=== PATIENT | female | born 1985 | race African-American/Black ===

== ENCOUNTER 2017-02-21 03:37 | Emergency (ER) | payer BC, OTHER ==
--- NOTE | ~2017-02-21 | CR72 ---
[facility] A Service of [facility] & [facility] RADIOLOGY TEXT RESULTS PATIENT: HERNAN SANCHEZ LOCATION: [facility] : 89 UNIT #: [id number] AGE: [address]: Roc Vallejo MD SEX: F ORDER DR: [id number] [facility] [address] [place], [place] [address] [id number] E MR#: [id number] Acc #: [id number] NAME: HERNAN SANCHEZ : 1985 SEX: F STUDY DATE/TIME: 02/21/2017 02:52 UNIT: [facility] ROOM: STUDY DESCRIPTION: CR Chest Single View Portable Attending Physician: Roc Vallejo M.D. Ordering Physician: Roc Vallejo M.D. Primary Care Physician: Primary Care Physician No MEDICAL IMAGING REPORT This report is preliminary unless electronic signature is present EXAM Portable chest 02/21 at 0254 INDICATIONS Wheezing and shortness of air tonight. FINDINGS AP portable chest is compared with 05/21/2016. Cardiac enlargement is unchanged. There is some minimal infiltrate or atelectasis at the right base. Lungs otherwise are clear. No pneumothorax. IMPRESSION Mild cardiomegaly with mild degree of infiltrate or atelectasis at the right lung base. Dictated by... Stanford Aj Jr., M.D. THIS IS AN ELECTRONICALLY VERIFIED REPORT Stanford Aj Jr., M.D. at 02/24/2017 7:22 AM HENRIETTA/rita TD: 02/21/2017 07:39 JOB #: [id number] MEDICAL IMAGING REPORT Page 1 of 1 COPY
[2017-02-21 03:16] LABS: BASOPHIL# 0.1 X10e3 (0-0.3); BASOPHIL% 0.8 % (0-2.5); EOSINOPHIL# 0.9 X10e3 (0-0.7); EOSINOPHIL% 11.8 % (0.0-7.0); HEMATOCRIT 38.4 % (35.0-45.0); HEMOGLOBIN 12.6 gm/dL (12.0-16.0); LYMPHOCYTE% 38.7 % (17.0-45.0); MEAN CELL VOLUME 84.6 FL (83-96); MEAN CORPUSCULAR HEMOGLOBIN 27.7 PG (28-34); MEAN CORPUSCULAR HGB CONC 32.7 g/dL (30-36); MEAN PLATELET VOLUME 8.9 FL (6.5-11.5); MONOCYTE# 0.6 X10e3 (0-1.0); MONOCYTE% 8.3 % (3.0-12.0); NEUTROPHIL# 3.1 X10e3 (1.5-7.1); NEUTROPHIL% 40.4 % (40-75); PLATELET COUNT 294 X10e3 (140-420); RED BLOOD COUNT 4.54 X10e (3.90-5.30); RED CELL DISTRIBUTION WIDTH 14.4 % (11.0-15.5); WHITE BLOOD COUNT 7.7 X10e3 (4.0-10.5)
[2017-02-21 03:17] LABS: DIFF IND NO
[2017-02-21 03:51] LABS: BUN/CREATININE RATIO 16.25; CALCIUM SERUM 9.3 mg/dL (8.4-10.2); CREATININE SERUM 0.8 mg/dL (0.6-1.4); GLOM FILT RATE Estimated 114.8 mL/min (>60); POTASSIUM 3.7 mmol/L (3.5-5.1)
== END 2017-02-21 04:18 | disposition home or self-care (01) ==
LOC: CED 03:37
PROVIDERS: Emergency Medicine
DX: J18.9 Pneumonia, unspecified organism (principal); J98.01 Acute bronchospasm
CPT/HCPCS: 36415; 71010; 80048; 85025; 94640; 99283; J2930